=== PATIENT | female | born 1985 | race American Indian/Alaskan Native ===

== ENCOUNTER 2017-01-27 07:00 | Day surgery (SDC) | payer OTHER ==
[2017-01-27] MEDS ORDERED: XYLOCAINE MPF 2% ONE (07:05)
[2017-01-27] MEDS ORDERED: ZOFRAN ONE (07:05)
[2017-01-27] MEDS ORDERED: NEOSTIGMINE ONE (07:06)
[2017-01-27] MEDS ORDERED: ROBINUL ONE ×2 (07:06)
[2017-01-27] MEDS ORDERED: ZEMURON IV ONE (07:06)
[2017-01-27] MEDS ORDERED: DECADRON ONE (07:06)
[2017-01-27] MEDS ORDERED: SUBLIMAZE ONE (07:08)
[2017-01-27] MEDS ORDERED: DIPRIVAN 10 MG/ML IV ONE (07:09)
[2017-01-27] MEDS ORDERED: DILAUDID ONE (07:09)
--- NOTE | 2017-01-27 07:31 | Anesthesia Day of Surgery ---
Anesthesia Day of Surgery - Day of Surgery Patient Examined: Yes Patient H&P Reviewed: Yes Patient is NPO: Yes
--- NOTE | 2017-01-27 07:31 | Anesthesia Consultation ---
Anesthesia Consult and Med Hx Date of service: 01/27/17 - Airway Anesthetic Teeth Evaluation: Good (2 missing teeth on top) ROM Head & Neck: Adequate Mental/Hyoid Distance: Adequate Mallampati Class: Class I Intubation Access Assessment: Probably Good - Pulmonary Exam CTA: Yes - Cardiac Exam Cardiac Exam: RRR - Pre-Operative Health Status ASA Pre-Surgery Classification: ASA1 Proposed Anesthetic Plan: General - Pulmonary Hx Smoking: Yes (3-4 times a day) - Central Nervous System Hx Psychiatric Problems: No - Other Systems Hx Alcohol Use: Yes (occas) Hx Substance Use: Yes (marijuana twice daily) Hx Cancer: No
[2017-01-27] MEDS ORDERED: VERSED IV NR (08:00)
[2017-01-27] MEDS ORDERED: NACL 0.9% 1000 ML 1,000 ML IV SCH (08:00)
--- NOTE | 2017-01-27 08:33 | Short Stay Summary ---
Short Stay Documentation Date of service: 01/27/17 Narrative H&P: Pt is a 31yo BF LMP 01/15/17 presents for surgical evaluation and treatment of pelvic pain. Pelvic u/s showed an enlarged uterus with multiple fibroids and a right ovarian solid mass 2.2 x 1.9cm CA125 was elevated at 32. She is therefore scheduled for a Laproscopic right ovarian cystectomy. - History Principal diagnosis: Right ovarian mass H&P: obtained from office Past Medical History: No medical history Past Surgical History: No surgical history Social history: no significant social history, single - Allergies and Medications Current Medications: Allergies No Known Allergies Allergy (Unverified 01/26/17 18:28) Home Medications Medication Instructions Recorded Confirmed Last Taken Type Ibuprofen [Motrin] 600 mg PO Q8H PRN 01/26/17 01/27/17 01/14/17 14:00 History Naproxen Sodium 220 mg PO PRN PRN 01/26/17 01/27/17 01/15/17 14:00 History traMADol [Ultram] 50 mg PO Q4HR PRN 01/26/17 01/27/17 01/15/17 14:00 History Active Medications Famotidine (Pepcid) 20 mg IV PREOP NR Stop: 01/27/17 13:00 Last Admin: 01/27/17 08:14 Dose: 20 mg Sodium Chloride (Nacl 0.9% 1000 Ml) 1,000 mls @ 100 mls/hr IV DIRECT STEVE Last Admin: 01/27/17 08:13 Dose: 100 mls/hr Cefazolin Sodium (Ancef/Sterile Water 2 Gm/20 Ml) 2 gm in 20 mls @ 80 mls/hr IV PREOP NR PRN Reason: Protocol Midazolam HCl (Versed) 2 mg IV PREOP NR Stop: 01/27/17 23:59 Last Admin: 01/27/17 08:14 Dose: 2 mg - Physical exam General appearance: no acute distress Integumentary: no rash HEENT: Atraumatic Lungs: Clear to auscultation Breasts: deferred Heart: Regular rate Gastrointestinal: normal Female Genitourinary: deferred Extremities: no ischemia, No edema Neurological: Normal gait, Normal speech - Brief post op/procedure progress note Date of procedure: 01/27/17 Pre-op diagnosis: 1. Right ovarian mass 2. Suspect endometriosis 3. Fibroid uterus Post-op diagnosis: same Procedure: Laproscopic right ovarian cystectomy Anesthesia: GETA Findings: An enlarged uterus with multiple fibroids including a cervical fibroid, a large right ovarian mass adherent in the pelvic cul-de-sac and right ovarian fossa, endometriotic implants to the right fallopian tube, a normal left ovary and fallopian tubes adherent to the pelvic sidewalls bilaterally. Surgeon: AMANDA HE Estimated blood loss: minimal Pathology: list (right ovarian cyst) Specimen disposition: to lab Condition: stable - Hospital course Hospital course: Unremarkable. - Disposition Condition at discharge: Good Disposition: DC- TO HOME OR SELFCARE - Discharge Diagnoses (1) Right ovarian cyst Status: Resolved (2) Endometriosis of ovary Status: Chronic (3) Fibroid, uterine Status: Chronic Qualifiers: Uterine leiomyoma location: intramural and submucous Qualified Code(s): D25.1 - Intramural leiomyoma of uterus; D25.0 - Submucous leiomyoma of uterus Short Stay Discharge Plan Activity: no restrictions Diet: regular Wound: open to air, keep clean and dry Follow up with: AMANDA HE MD [Staff Physician] - 14 Days Prescriptions: HYDROcodone/APAP 5-325 [[place] 5/325] 1 each PO Q6HR PRN #20 tablet PRN Reason: Pain
[2017-01-27] MEDS ORDERED: MARCAINE 0.5% 30 ML INFILTRATI ONE (08:46)
[2017-01-27 08:56] LABS: Hematocrit 37.8 % (30.3-42.9); Hemoglobin 12.4 gm/dl (10.1-14.3); Mean Corpuscular HGB Conc 33 % (30-34); Mean Corpuscular Hemoglobin 28 pg (28-32); Mean Corpuscular Volume 85 fl (79-97); Platelet Count 256 K/mm3 (140-440); Red Blood Count 4.46 M/mm3 (3.65-5.03); Red Cell Distribution Width 14.2 % (13.2-15.2); White Blood Count 6.5 K/mm3 (4.5-11.0)
[2017-01-27] MEDS ORDERED: PEPCID IV NR (09:00)
[2017-01-27] MEDS ORDERED: ANCEF/STERILE WATER 2 GM/20 ML 2 GM/20 ML SYRINGE IV NR (09:00)
[2017-01-27] MEDS ORDERED: TORADOL ONE (09:36)
[2017-01-27] MEDS ORDERED: MARCAINE 0.5% INFILTRATI ONE (09:45)
[2017-01-27] MEDS ORDERED: NACL 0.9% IR ONE ×2 (09:45)
[2017-01-27] MEDS ORDERED: DEMEROL ONE (10:14)
--- NOTE | 2017-01-27 10:39 | Operative Report ---
Operative Report Operative Report: Date of procedure: 01/27/2017 Pre-operative diagnosis: 1. Right ovarian cyst 2. Pelvic pain 3. Fibroid uterus Post-operative diagnosis: Same with suspected endometriosis Procedure name(s): Laparoscopic right ovarian cystectomy Surgeon: Johan Montalvo MD Garage Door Opener Installer: None Anesthesia: General endotracheal intubation by Dr. Sarah Mason EBL: Minimal less than 10 mL's Findings: An enlarged uterus with multiple fibroids including the cervical fibroid. A large right ovarian cyst adherent to the pelvic cul-de-sac and the right ovarian fossa. A normal left ovary. Both fallopian tubes showed evidence of endometriosis and adherent to the pelvic sidewalls bilaterally. Normal appendix. Procedure: After the patient was correctly identified, she was prepped and draped in usual sterile fashion and placed in the dorsolithotomy position. Next the bladder was emptied using a straight catheter, and the speculum was placed in the vaginal vault. The anterior lip of the cervix was grasped using single-tooth tenaculum, and the uterine manipulator was then placed. The tenaculum and speculum were removed, and attention was turned to the abdomen. A periumbilical incision was made using the skin knife and the Optiview trocar was inserted under direct visualization. After an adequate amount of abdominal insufflation, visualization of the pelvic organs found the uterus to be enlarged with multiple fibroids including a large cervical fibroid. The right ovary was enlarged and cystic, adherent to the pelvic cul-de-sac and the right ovarian fossa. It was leaking brownish material consistent with endometriosis, and there were multiple endometriotic implants on the fallopian tubes bilaterally. The fallopian tubes were also adherent to the pelvic sidewalls bilaterally. The left ovary appeared to be normal, and the appendix was also normal. Next a suprapubic and a right lateral incision was made through which 5 mm trochars were placed in order to aid in manipulation of the pelvic organs. The right ovarian cyst was raised from the pelvic cul-de-sac and the tripolar cautery was used to excise the distal portion of the ovary, which was placed in the Endopouch and removed to be sent to pathology. The endometriotic implants were ablated using bipolar cautery. At this point the procedure was considered complete. Copious amounts of irrigation was performed and after good hemostasis was assured, Interceed was placed over the excision site and in the right ovarian fossa. All instruments removed from abdomen. The abdomen was deflated, and the periumbilical incision was closed using 0 Vicryl suture in [id number] configuration on the fascia followed by 4-0 Monocryl suture in subcuticular fashion on the skin. The suprapubic and right lateral incisions were closed in similar fashion. Each incision was infiltrated using 0.5% Marcaine solution. The uterine manipulator was removed, the patient tolerated the procedure well and was transported to recovery in stable condition.
[2017-01-27] MEDS ORDERED: DEMEROL IV PRN (10:45)
--- NOTE | 2017-01-27 10:57 | Post Anesthesia Evaluation ---
- Post Anesthesia Evaluation Patient Participated: Yes Airway Patent: Yes Stable Respiratory Function: Yes Nausea/Vomiting: No Temp > 96.8F: Yes Pain Manageable: Yes Adequeate Hydration: Yes Anesthesia Complications: No Block Receding Appropriately: Not Applicable Patient on Ventilator: No
[2017-01-27] MEDS ORDERED: DILAUDID IV PRN (11:00)
[2017-01-27 11:41] VITALS: BP 126/65
== END 2017-01-27 12:10 | disposition home or self-care (01) ==
LOC: OR 07:00
PROVIDERS: ATTEND Obstetrics & Gynecology
DX: N83.11 Corpus luteum cyst of right ovary (principal); N83.00 Follicular cyst of ovary, unspecified side; N80.1 Endometriosis of ovary; D25.9 Leiomyoma of uterus, unspecified; F17.200 Nicotine dependence, unspecified, uncomplicated; F12.90 Cannabis use, unspecified, uncomplicated; Z72.89 Other problems related to lifestyle
CPT/HCPCS: 36415; 58662; 81025; 85027; 88305; A4217; C1765; J0690; J1100; J1170; J1885; J2175; J2250; J2405; J2704; J2710; J3010; J7030